=== PATIENT | female | born 1985 | race Caucasian/White ===

== ENCOUNTER 2020-05-27 06:45 | Day surgery (SDC) | payer OTHER ==
[~2020-05-27 06:45] MED LIST: CEFAZOLIN 1 GM/D5W RTU 1 GM/50 ML RTUPB IV PRN
[2020-05-27] MEDS ORDERED: MIDAZOLAM 2 MG/2 ML INJ ONE (06:47)
[2020-05-27] MEDS ORDERED: MORPHINE SULFATE 10 MG/ML INJ ONE (06:47)
[2020-05-27] MEDS ORDERED: ONDANSETRON HCL INJ/PF 4 MG/2 ML SDV ONE (06:47)
[2020-05-27] MEDS ORDERED: PROPOFOL INJ 200 MG/20 ML VIAL IV ONE (06:48)
[2020-05-27] MEDS ORDERED: BUPIVACAINE HCL 0.5 % INJ/PF 30 ML SDV ONE (06:55)
[2020-05-27] MEDS ORDERED: LIDOCAINE 2% INJ (20 MG/ML) 20 ML MDV ONE (06:55)
[2020-05-27] MEDS: BACITRACIN INJ 50,000 UNIT VIAL ONE ×2 (08:24→08:41)
[2020-05-27] MEDS: POLYMYXIN B SULFATE INJ 500000 UNIT VIAL ONE ×2 (08:24→08:41)
[2020-05-27] MEDS: NORMAL SALINE INJ/PF 0.9% 10 ML SDV ONE ×2 (08:25→08:41)
[2020-05-27] MEDS: BUPIVACAINE INJ/PF LIPOSOME/PF 266 MG/20 ML SDV ONE ×2 (08:26→09:00)
[2020-05-27] MEDS: DEXAMETHASONE SOD PHOSPHATE INJ 4 MG/1 ML VIAL ONE ×2 (08:26→09:03)
--- NOTE | 2020-05-27 09:29 | Operative Report ---
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 POSTOPERATIVE DIAGNOSIS: Same. OPERATION: Arthroplasty first metatarsophalangeal joint left foot. ANESTHESIA: LMAC ESTIMATED BLOOD LOSS: <0.5ml INTRAOPERATIVE FINDINGS: Degenerative changes in the first metatarsophalangeal joint. PROCEDURE: On 05/27/2020 patient was admitted surgery care with complaint of a painful left foot. Patient was taken the operating room. Following the induction of intravenous sedation and regional local anesthesia the patient's left foot and leg were prepped and draped in the usual sterile manner. Pneumatic tourniquet was placed proximal to the ankle malleoli, Esmarch was applied, tourniquet was inflated to level of 250 mmHg, Esmarch was removed, sterile draping completed, and the following procedure performed. Arthroplasty of first metatarsophalangeal joint: Attention was directed to the dorsal aspect of the patient's first metatarsophalangeal joint where a 3 cm linear incision was placed medial to the long extensor tendon. Incision was deepened through the subcutaneous tissue via sharp and blunt dissection, all bleeding vessels were clamped ligated and bovied as as necessary for hemostasis. The Capsule was identified, and an incision made into the capsule in a similar fashion as the original skin incision, tissue was retracted mediolaterally for preservation. This brought into view hypertrophied dorsal aspect of the first metatarsal head at the joint. Utilizing rongeur all hypertrophied bone was removed in toto. This allowed visualization of the joint. The dorsal lateral portion of the first metatarsal head was devoid of articular cartilage. The perimeter of the base of the proximal phalanx was likewise devoid of articular cartilage and there was some hypertrophied bone. Utilizing combination of hand- held instruments and power instrumentation all hypertrophied bone was removed both sides of the joint. Dissection was carried about the dorsal and plantar portions of the joint to free up and improve motion. Utilizing power rasp all sharp osseous edges were rasped smooth. The joint was contoured to allow for free range of motion. The joint was placed through range of motion and was free of crepitus and had significantly improved dorsal end range of motion. It was felt at this time the microfracture technique was not required. The wound was flushed with copious amounts of sterile antibiotic solution and inspected for any soft tissue or osseous debris with none being noted. Bone wax was applied to all exposed medullary bone surfaces. At that time the capsular periosteal structures are coapted and maintained with simple suture of 3-0 Vicryl. The long extensor tendon was transposed more midline position, tendon sheath was sutured to the medial capsule. Subcutaneous tissue was coapted and maintained with simple suture of 4-0 Vicryl. Exparel, 18ml, was injected subcuticularly in the periwound area. Skin incision was coapted maintained with interrupted horizontal mattress suture of 5-0 nylon. 1 cc of 4mg/ml, dexamethasone was injected in the periwound area. Sterile dressing consisting of Sree silk 4 x 4's Desi Kerlix and Coban was applied to the patient's left foot. Tourniquet was rapidly deflated. Capillary filling time was noted be instantaneous to all digits. Patient tolerated surgery and anesthesia well was taken recovery room further monitored by the anesthesia department.
--- NOTE | 2020-05-27 14:03 | RADIOLOGY REPORT (SQ) ---
EXAM DESCRIPTION: TOE LEFT; NO CHG FLUORO IMAGES COMPLETED DATE/TIME: 05/27/2020 10:31 am REASON FOR STUDY: LEFT BIG TOE ARTHROPLASTY ASSISTED WITH FLUORO IN [facility] M21.612 BUNION OF LEF T FOOT M25.775 OSTEOPHYTE, LEFT FOOT COMPARISON: None. FLUOROSCOPY TIME: 2 seconds. 2 images submitted to PACS. TECHNIQUE: Intra-operative images of the left 1st toe were obtained intraoperatively. LIMITATIONS: None. FINDINGS: Refer to the separate operative report. IMPRESSION: IMAGE(S) OBTAINED DURING PROCEDURE. COMMENT: Quality ID 145: Final reports for procedures using fluoroscopy that document radiation exp osure indices, or exposure time and number of fluorographic images (if radiation exposure indices are not available) Please consult full operative report of the attending physician for description of the procedure. TECHNICAL DOCUMENTATION: JOB ID: [id number] 2010 [employer]- All Rights Reserved Reading location - IP/workstation name: [email or web address]
--- NOTE | 2020-05-27 14:03 | RADIOLOGY REPORT (SQ) ---
EXAM DESCRIPTION: TOE LEFT; NO CHG FLUORO IMAGES COMPLETED DATE/TIME: 05/27/2020 10:31 am REASON FOR STUDY: LEFT BIG TOE ARTHROPLASTY ASSISTED WITH FLUORO IN [facility] M21.612 BUNION OF LEF T FOOT M25.775 OSTEOPHYTE, LEFT FOOT COMPARISON: None. FLUOROSCOPY TIME: 2 seconds. 2 images submitted to PACS. TECHNIQUE: Intra-operative images of the left 1st toe were obtained intraoperatively. LIMITATIONS: None. FINDINGS: Refer to the separate operative report. IMPRESSION: IMAGE(S) OBTAINED DURING PROCEDURE. COMMENT: Quality ID [id number]: Final reports for procedures using fluoroscopy that document radiation exp osure indices, or exposure time and number of fluorographic images (if radiation exposure indices are not available) Please consult full operative report of the attending physician for description of the procedure. TECHNICAL DOCUMENTATION: JOB ID: [id number] 2010 [email or web address]- All Rights Reserved Reading location - IP/workstation name: [email or web address]
== END 2020-05-27 10:23 | disposition home or self-care (01) ==
LOC: SC 06:45 → EDBD 07:30 → SC 10:23
PROVIDERS: ATTEND Preventive Medicine Undersea and Hyperbaric Medicine
DX: M20.5X2 Other deformities of toe(s) (acquired), left foot (principal); M19.072 Primary osteoarthritis, left ankle and foot; M79.672 Pain in left foot; Z01.812 Encounter for preprocedural laboratory examination; Z20.828 Contact with and (suspected) exposure to other viral communicable diseases
CPT/HCPCS: 28289; 87635; 73660; L3260; J2250; J3490 ×5; J0690; J1100; J2270; J2405; J2704; C9290; C9803; 01480